=== PATIENT | male | born 1970 | race African-American/Black ===

== ENCOUNTER 2020-07-10 11:46 | Outpatient (REF) | payer OTHER, SELFPAY ==
[2020-07-10 12:08] LABS: COVID-19 Test Negative (Negative)
== END 2020-07-10 11:47 | disposition home or self-care (01) ==
LOC: HO.EMPCOV 11:46
PROVIDERS: Visit Provider Internal Medicine
DX: Z20.822 Contact with and (suspected) exposure to COVID-19 (principal)
CPT/HCPCS: 36415; 87635; C9803

== ENCOUNTER 2021-06-30 07:19 | Outpatient (REF) | payer OTHER, SELFPAY ==
[2021-06-30 09:47] LABS: Binax Now Covid-19 Ag Positive (Negative)
[2021-06-30 09:48] LABS: Binax Internal Control QC Valid; Binax Lot number: 9864
== END 2021-06-30 07:20 | disposition home or self-care (01) ==
LOC: HO.LAB 07:19
PROVIDERS: Visit Provider Internal Medicine
DX: Z20.822 Contact with and (suspected) exposure to COVID-19 (principal)
CPT/HCPCS: 36415; 87635; C9803